=== PATIENT | male | born 1955 ===

== ENCOUNTER 2017-03-11 14:01 | Emergency (ER) | payer OTHER ==
[~2017-03-11 14:01] MED LIST: ATENOLOL25 MG PO; HYDROCHLOROTHIA25 MG PO; PAROXETINE HCL10 MG PO; PROBIOTIC PO; VITAMIN C TR500 M1 PO; [UNRECOGNIZED DRUG - OTHER] PO
--- NOTE | 2017-03-11 14:23 | ED CLINICAL REPORT ---
Clinical Report - Physicians/Mid Levels [facility] [address] [place] [address] 03/11/2017 14:01 Patient: AMPARO VANEGAS Time Seen: 1415; initial patient contact, initial documentation, patient care assumed. Arrived- By private vehicle. Historian- patient. HISTORY OF PRESENT ILLNESS Chief Complaint: UPPER EXTREMITY SWELLING. Modifying factors. Not worsened by anything. Not made better by anything. This started yesterday and is still present but is improving. It was abrupt in onset and has been constant. Severity is described as being moderate in degree. No radiation. Symptoms located in the area of the left elbow. No chest pain, difficulty breathing, sensory loss, motor loss or repetitive hand use at work. He has not had redness. He has had new onset of localized swelling, (L elbow). Patient denies an injury. Similar symptoms previously: None. Recent medical care: Not recently seen/assessed. REVIEW OF SYSTEMS No fever. All systems otherwise negative, except as recorded above. PAST HISTORY See nurses notes. PROBLEMS: Depression. Hypertension. --14:18 Bhakti Mendoza. ADDITIONAL SURGERIES: Hernia Repair. --14:18 Bhakti Mendoza. SOCIAL HISTORY Never smoker. Occasional alcohol use. No drug use. No recent travel. Is a local resident. FAMILY HISTORY Negative. ADDITIONAL NOTES The nursing notes have been reviewed with agreement regarding the chief complaint, HPI, ROS, PMH and patient medications and allergies. PHYSICAL EXAM Vital Signs: 03/11/2017 14:15 BP: 142/84. HR: 56. RR: 18. O2 saturation: 96%. Temp: 97.9 F. Have been reviewed as abnormal and appear to be correct. Blood pressure normal. Bradycardic. Respiratory rate normal. Temperature normal. Oxygen saturation normal. Appearance: Alert. Oriented X3. No acute distress. Eyes: Pupils equal, round and reactive to light. Eyes normal inspection. Neck: Normal inspection. Neck supple. Respiratory: No respiratory distress. Skin: Skin intact. Skin warm and dry. Normal skin color. Normal skin turgor. Extremities: Upper extremities abnormal to inspection. Upper extremities exhibit normal ROM. Upper extremities nontender. Upper extremities exhibit edema. Left elbow: mild swelling. Neurovascular intact distally. (bursitis noted). No erythema, tenderness, laceration, abrasion or ecchymosis. No puncture wound, foreign body or deformity. No localization, joint effusion or limitation in ROM. Extremities otherwise negative. Neuro: Oriented X 3. No motor deficit. No sensory deficit. PROGRESS AND PROCEDURES Patient counseled in person regarding the patient's stable condition and diagnosis. Differential Diagnosis: Other possible considerations: abscess, septic joint, bursitis, effusion, compartment syndrome. Above considerations are based on history and physical exam. Differential diagnosis was discussed with patient. Disposition: Discharged home in good and unchanged condition (14:23). Condition: good and stable. CLINICAL IMPRESSION Bursitis (L Elbow). No traumatic or gouty bursitis, bursitis with infection or buritis with abscess formation. INSTRUCTIONS Warnings: GENERAL WARNINGS: Return or contact your physician immediately if your condition worsens or changes unexpectedly, if not improving as expected, or if other problems arise. Specifically return if problem worsens. Follow-up: Follow up with your doctor in about three days as needed. Call for an appointment. Summary of care provided to patient. Understanding of the discharge instructions verbalized by patient. (Electronically signed by Sylwia Singleton A.R.N.P. 03/11/2017 16:43)
--- NOTE | 2017-03-11 14:23 | ED NURSING NOTES ---
Clinical Report - Nurses [facility] [address] [place] [address] 03/11/2017 14:01 Patient: AMPARO VANEGAS TRIAGE Triage time 1405. Acuity: LEVEL 4. Chief Complaint: LEFT UPPER EXTREMITY PAIN and SWELLING. Alert. No acute distress. --14:19 Bhakti Mendoza 14:15 03/11/17. BP: 142/84. HR: 56. RR: 18. O2 saturation: 96%. Temp: 97.9 F. Pain level now 12/05. --14:19 Bhakti Mendoza. Weight: 97.5 kg. Height/Length: 72 inches. BMI: 29.2. --14:15 Bhakti Mendoza. Medications Hydrochlorothiazide Oral. --14:17 Bhakti Mendoza Paxil Oral. --14:17 Bhakti Mendoza Atenolol Oral. --14:17 Bhakti Mendoza. Allergies Codeine. --14:17 Bhakti Mendoza. History Arrived by private vehicle. Historian: patient. Accompanied by family. No injury occurred. This occurred today. ( Pt noticed left elbow sore yesterday, over the day it has swelled up, no redness or s/sxs of infection noted, NKI). 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 SOCIAL HX: Never smoker. Alcohol use; consumes two liquor weekly. --14:19 Bhakti Mendoza. PROBLEMS: Depression. Hypertension. --14:18 Bhakti Mendoza. ADDITIONAL SURGERIES: Hernia Repair. --14:18 Bhakti Mendoza. Interventions ID band on patient. To treatment room. --14:19 Bhakti Mendoza. PHYSICAL ASSESSMENT Ambulatory to room. GENERAL / NEURO / PSYCH: Oriented X 4. Alert. Appears in no acute distress. EXTREMITIES: Left elbow: tenderness and swelling. SKIN: Skin intact. Skin is warm and dry. --14:19 Bhakti Mendoza. NURSING PROGRESS NOTES Reassurance given. Call light placed in reach. Bed placed in lowest position. Brakes of bed on. Patient ready for evaluation- chart flagged. --14:20 Bhakti Mendoza. DISPOSITION / DISCHARGE Departure time: 1445. Condition at departure: unchanged and stable. Discharge instructions provided and reviewed with the patient. Patient verbalized understanding. Written instructions provided in British. The patient was discharged by the nurse practitioner. He was discharged home and accompanied by family. He left the Emergency Department ambulatory and via private vehicle. Family member driving. --14:49 Bhakti Mendoza. Locked/Released at 03/11/2017 14:49 by Bhakti Mendoza,
--- NOTE | 2017-03-11 14:23 | ED NURSING NOTES ---
Clinical Report - Nurses [facility] [address] [place] [address] 03/11/2017 14:01 Patient: AMPARO VANEGAS TRIAGE Triage time 1405. Acuity: LEVEL 4. Chief Complaint: LEFT UPPER EXTREMITY PAIN and SWELLING. Alert. No acute distress. --14:19 Bhakti Mendoza 14:15 03/11/17. BP: 142/84. HR: 56. RR: 18. O2 saturation: 96%. Temp: 97.9 F. Pain level now 12/05. --14:19 Bhakti Mendoza. Weight: 97.5 kg. Height/Length: 72 inches. BMI: 29.2. --14:15 Bhakti Mendoza. Medications Hydrochlorothiazide Oral. --14:17 Bhakti Mendoza Paxil Oral. --14:17 Bhakti Mendoza Atenolol Oral. --14:17 Bhakti Mendoza. Allergies Codeine. --14:17 Bhakti Mendoza. History Arrived by private vehicle. Historian: patient. Accompanied by family. No injury occurred. This occurred today. ( Pt noticed left elbow sore yesterday, over the day it has swelled up, no redness or s/sxs of infection noted, NKI). 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 SOCIAL HX: Never smoker. Alcohol use; consumes two liquor weekly. --14:19 Bhakti Mendoza. PROBLEMS: Depression. Hypertension. --14:18 Bhakti Mendoza. ADDITIONAL SURGERIES: Hernia Repair. --14:18 Bhakti Mendoza. Interventions ID band on patient. To treatment room. --14:19 Bhakti Mendoza. PHYSICAL ASSESSMENT Ambulatory to room. GENERAL / NEURO / PSYCH: Oriented X 4. Alert. Appears in no acute distress. EXTREMITIES: Left elbow: tenderness and swelling. SKIN: Skin intact. Skin is warm and dry. --14:19 Bhakti Mendoza. NURSING PROGRESS NOTES Reassurance given. Call light placed in reach. Bed placed in lowest position. Brakes of bed on. Patient ready for evaluation- chart flagged. --14:20 Bhakti Mendoza. DISPOSITION / DISCHARGE Departure time: 1445. Condition at departure: unchanged and stable. Discharge instructions provided and reviewed with the patient. Patient verbalized understanding. Written instructions provided in Greenlandic. The patient was discharged by the nurse practitioner. He was discharged home and accompanied by family. He left the Emergency Department ambulatory and via private vehicle. Family member driving. --14:49 Bhakti Mendoza. Locked/Released at 03/11/2017 14:49 by Bhakti Mendoza,
--- NOTE | 2017-03-11 16:43 | ED DISCHARGE INSTRUCTIONS ---
Patient: AMPARO VANEGAS General Instructions [facility] VisitID: [id number] [place] [address] 62y, M Registration Date/Time: 03/11/2017 Bursitis (L Elbow). No traumatic or gouty bursitis, bursitis with infection or buritis with abscess formation. INSTRUCTIONS Warnings: GENERAL WARNINGS: Return or contact your physician immediately if your condition worsens or changes unexpectedly, if not improving as expected, or if other problems arise. Specifically return if problem worsens. Follow-up: Follow up with your doctor in about three days as needed. Call for an appointment. Summary of care provided to patient. Understanding of the discharge instructions verbalized by patient. ADDITIONAL INFORMATION Bursitis The larger joints of the body are surrounded bybursa. These are small, flat fluid-filled sacs which help the gliding motion of the muscles and tendons over the joints. Bursitis is an inflammation of the bursa due to injury, overuse of the joint, or infection of the bursa itself. Symptoms include pain and tenderness over a joint that is made worse with movement. Bursitis is treated with an anti-inflammatory medicine and by resting the joint. More severe cases require injection of medicine directly into the bursa. Home Care: Apply an ice pack (ice cubes in a plastic bag, wrapped in a towel) over the injured area for 20 minutes every 1-2 hours the first day. Continue this 3-4 times a day until the pain and swelling improves. Rest the painful joint and protect it from movement. This will allow the inflammation to heal faster. You may take ibuprofen (Motrin, Advil) or naproxen (Aleve, Naprosyn) to treat pain and inflammation, unless another medicine was prescribed. If you can't take these medicines, acetaminophen (Tylenol) may help with the pain, but does not treat inflammation. [NOTE: If you have chronic liver or kidney disease or ever had a stomach ulcer or GI bleeding, talk with your doctor before using these medicines.] As your symptoms improve, begin gradual motion at the joint. Do not overuse the joint, which may cause the symptoms to flare up again. Follow Up With Your Doctor If Not Improving After Three Days Of Treatment. Get Prompt Medical Attention If Any Of The Following Occur: Redness over the painful area Increasing pain or swelling at the joint Fever of 100.4F (38C) or higher, or as directed by your healthcare provider You have been given the following additional information: Bursitis (Electronically signed by Sylwia Singleton A.R.N.P. 03/11/2017 16:43)
--- NOTE | 2017-03-11 16:43 | ED MED RECONCILIATION SUMMARY ---
Patient: AMPARO VANEGAS Medication Reconciliation Report [facility] VisitID: [id number] [address] [place] [address] 62y, M Registration Date/Time: 03/11/2017 Weight: 97.5 kg Height/Length: 72 in. BMI: 29.2 ALLERGIES: Codeine The patient's Home Medications are listed below: THE FOLLOWING MEDICATIONS NEED TO BE RECONCILED: Atenolol Oral Hydrochlorothiazide Oral Paxil Oral The source(s) of the original Home Medication information: Not obtained. The following Medications were given to the patient in the Emergency Department: None. The following Medications were prescribed to the patient: None.
--- NOTE | 2017-03-11 16:43 | ED MAR SUMMARY ---
..... Medication Administration Record [facility] [address] [place], [place] [id number] Patient: AMPARO VANEGAS Visit ID: [id number] 62y, M Weight: 97.5 kg Height/Length: 72 in BMI: 29.2 ALLERGIES: Codeine
--- NOTE | 2017-03-11 16:43 | ED MED RECONCILIATION SUMMARY ---
Patient: AMPARO VANEGAS Medication Reconciliation Report [facility] VisitID: [id number] [address] [place] [address] 62y, M Registration Date/Time: 03/11/2017 Weight: 97.5 kg Height/Length: 72 in. BMI: 29.2 ALLERGIES: Codeine The patient's Home Medications are listed below: THE FOLLOWING MEDICATIONS NEED TO BE RECONCILED: Atenolol Oral Hydrochlorothiazide Oral Paxil Oral The source(s) of the original Home Medication information: Not obtained. The following Medications were given to the patient in the Emergency Department: None. The following Medications were prescribed to the patient: None.
--- NOTE | 2017-03-11 16:43 | ED MAR SUMMARY ---
..... Medication Administration Record [facility] [address] [place], [place] [id number] Patient: AMPARO VANEGAS Visit ID: [id number] 62y, M Weight: 97.5 kg Height/Length: 72 in BMI: 29.2 ALLERGIES: Codeine
== END 2017-03-11 14:45 | disposition home or self-care (01) ==
LOC: ED SRH 14:01
DX: M70.32 Other bursitis of elbow, left elbow (principal); I10 Essential (primary) hypertension; Z88.5 Allergy status to narcotic agent; Z79.899 Other long term (current) drug therapy